=== PATIENT | male | born 2000 | race Caucasian/White ===

== ENCOUNTER 2020-05-03 20:12 | Emergency (ER) | payer SELFPAY ==
[2020-05-03 20:25] VITALS: BP 125/50; PULSE 78; RESP 16; TEMP 37.4; O2SAT 100
--- NOTE | 2020-05-03 21:46 | ED_ITS ---
HPI - General Adult General Chief complaint: Unspecified Stated complaint: wheezing 2 days ago, no current symptoms Time Seen by Provider: 05/03/20 21:28 History of Present Illness HPI narrative: Patient is a 19-year-old male who came to the ER for evaluation of possible wheezing. Reports 2 days ago at work his boss told him he thought he heard him wheezing. He did not think he is wheezing at time but believes him nonetheless. Currently has no symptoms including cough/sinus congestion/sore throat. No known sick exposures. Does not feel like he is currently wheezing. Reports needs work note to return back. Related Data Allergies Allergy/AdvReac Type Severity Reaction Status Date / Time No Known Allergies Allergy Unverified 04/16/19 03:08 Review of Systems Constitutional: Constitutional: Denies chills, Denies fever(s) and Denies weakness ENT: Denies nasal congestion and Denies sore throat Respiratory: Respiratory: Denies chest congestion, Denies cough, Denies dyspnea and Reports wheezing PMFSH Past Medical History Medical History (Updated 05/03/20 @ 21:49 by Kalpesh Christensen MD) Healthy adult male Surgical History Surgical History (Updated 05/03/20 @ 21:47 by Kalpesh Christensen MD) History of tonsillectomy Social History Social History (Updated 05/03/20 @ 21:47 by Kalpesh Christensen MD) Smoking status: Current every day smoker Exam Narrative: Exam Narrative: GENERAL: Well-appearing, well-nourished, and in no acute distress. HEAD: Normocephalic, atraumatic. CHEST: Clear to auscultation. No respiratory distress. HEART: Regular rate and rhythm. Normal peripheral pulses. NEURO: Alert and oriented x3. PSYCH: Normal mood and affect. Course Course Emergency Course: Normal exam. No symptoms. Discharge home. Vital Signs Vital signs: Vital Signs Temperature 99.3 F 05/03/20 20:25 Pulse Rate 78 05/03/20 20:25 Respiratory Rate 16 05/03/20 20:25 Blood Pressure 125/50 L 05/03/20 20:25 Pulse Oximetry 100 05/03/20 20:25 Temperature 99.3 F 05/03/20 20:25 Pulse Rate 78 05/03/20 20:25 Respiratory Rate 16 05/03/20 20:25 Blood Pressure 125/50 L 05/03/20 20:25 Pulse Oximetry 100 05/03/20 20:25 Medical Decision Making Vital Signs Vital Signs: Vital Signs Temperature 99.3 F 05/03/20 20:25 Pulse Rate 78 05/03/20 20:25 Respiratory Rate 16 05/03/20 20:25 Blood Pressure 125/50 L 05/03/20 20:25 Pulse Oximetry 100 05/03/20 20:25 Temperature 99.3 F 05/03/20 20:25 Pulse Rate 78 05/03/20 20:25 Respiratory Rate 16 05/03/20 20:25 Blood Pressure 125/50 L 05/03/20 20:25 Pulse Oximetry 100 05/03/20 20:25 Discharge Plan Discharge Clinical Impression: Healthy adult on routine physical examination Patient Disposition: Home, Self-Care Condition: Stable Additional Instructions: Return the ER if you lose consciousness, you have fever over 100.4 ?F, you have additional concerns. Follow-up/Referrals: PHYSICIAN,EMERGENCY DEPARTMENT TECHNICIAN [Primary Care Provider] - Stand Alone Forms: Work/School Release IP
[2020-05-03 22:01] VITALS: BP 109/64; PULSE 67; RESP 20; TEMP 37.3; O2SAT 100
== END 2020-05-03 22:02 | disposition home or self-care (01) ==
PROVIDERS: Emergency Provider Emergency Medicine
DX: Z04.89 Encounter for examination and observation for other specified reasons (principal); F17.200 Nicotine dependence, unspecified, uncomplicated
CPT/HCPCS: 99281